=== PATIENT | female | born 1955 | race Caucasian/White ===

== ENCOUNTER 2019-11-19 10:06 | Emergency (ER) | payer BC ==
[2019-11-19 11:55] VITALS: BP 129/65
[2019-11-19 12:05] LABS: Influenza A Molecular Negative (Negative); Influenza B Molecular Negative (Negative)
--- NOTE | 2019-11-19 12:37 | UC ---
FLU HPI - HPI Summary HPI Summary: 64-year-old woman comes in with a chief complaint of 2 days of feeling ill. Started with a cough and then fatigue and chills. Does feel short of breath and has had chills and a cough. No recent travel. 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 Patient does feel short of breath but she does not feel like there is any sputum or chest congestion. - History of Current Complaint Chief Complaint: UCGeneralIllness Stated Complaint: COUGH,FATIGUE,CHILLS Time Seen by Provider: 11/19/19 11:09 Pain Intensity: 1 - Allergy/Home Medications Allergies/Adverse Reactions: Allergies Allergy/AdvReac Type Severity Reaction Status Date / Time No Known Allergies Allergy Verified 11/19/19 11:19 Home Medications: Home Medications NK [No Home Medications Reported] 11/19/19 [History Confirmed 11/19/19] PMH/Surg Hx/FS Hx/Imm Hx Previously Healthy: Yes - Surgical History Surgical History: Yes Surgery Procedure, Year, and Place: APPENDIX, BILATERAL OOPHRECTOMY 1975, UTERINE ABLATION 2009 - Family History Known Family History: Positive: Non-Contributory - Social History Alcohol Use: None Substance Use Type: Cocaine Smoking Status (MU): Never Smoked Tobacco Review of Systems All Other Systems Reviewed And Are Negative: Yes Constitutional: Positive: Chills, Fatigue, Other - SEE HPI Skin: Positive: Negative Eyes: Positive: Negative ENT: Positive: Other - SEE HPI Respiratory: Positive: Shortness Of Breath, Cough Cardiovascular: Positive: Negative Gastrointestinal: Positive: Negative Genitourinary: Positive: Negative Motor: Positive: Negative Neurovascular: Positive: Negative Musculoskeletal: Positive: Myalgia Neurological/Mental Status: Positive: Negative Psychological: Positive: Negative Is Patient Immunocompromised?: No Physical Exam Triage Information Reviewed: Yes Appearance: No Pain Distress, Well-Nourished, Ill-Appearing - MILD Vital Signs: Initial Vital Signs Temp 0 F 11/19/19 11:20 Pulse 0 11/19/19 11:20 Resp 0 11/19/19 11:20 BP 0/0 11/19/19 11:20 Pulse Ox 0 11/19/19 11:20 Vital Signs Reviewed: Yes Eye Exam: Normal Eyes: Positive: Conjunctiva Clear ENT: Positive: Pharynx normal, TMs normal Neck: Positive: Supple Respiratory: Positive: Lungs clear, Normal breath sounds, No respiratory distress Cardiovascular: Positive: RRR Musculoskeletal: Positive: Strength Intact, ROM Intact Neurological: Positive: Alert, Muscle Tone Normal Psychological: Positive: Age Appropriate Behavior Skin Exam: Normal Skin: Positive: Other Flu Course/Dx - Course Course Of Treatment: Patient's had chills cough and shortness of breath and therefore we will check for Covid 19. Patient's can it be in home isolation and treating symptomatically and then going to the emergency department if condition does not improve or worsens. - Differential Dx/Diagnosis Provider Diagnosis: Influenza-like illness Discharge ED - Sign-Out/Discharge Documenting (check all that apply): Patient Departure All imaging exams completed and their final reports reviewed: No Studies - Discharge Plan Condition: Stable Disposition: HOME Patient Education Materials: Viral Syndrome (ED) Referrals: Lily Mcneil MD [Primary Care Provider] - [facility] [Outside] Additional Instructions: PLACE YOURSELF IN HOME ISOLATION. THE [facility] DEPART[facility] WILL CONTACT YOU. CONTACT THEM TOMORROW IF YOU HAVE NOT HEARD FROM THEM. FOLLOW UP WITH YOUR DOCTOR IF NOT COMPLETELY IMPROVED. GO TO THE EMERGENCY DEPARTMENT IF NOT IMPROVED OR WORSE OR ANY QUESTIONS OR CONCERNS. - Billing Disposition and Condition Condition: STABLE Disposition: Home
== END 2019-11-19 12:50 | disposition home or self-care (01) ==
LOC: UCEAST 10:06
DX: J11.1 Influenza due to unidentified influenza virus with other respiratory manifestations (principal)
CPT/HCPCS: 87651; 99201; G0463